=== PATIENT | male | born 1980 | race Two or more races ===

== ENCOUNTER 2022-08-06 12:50 | Emergency (ER) | payer OTHER ==
[~2022-08-06] VITALS: Ht 170.2 cm; Wt 108.9 kg
[2022-08-06] MEDS ORDERED: AMLODIPINE-OLM1 EAC2 (13:01)
== END 2022-08-06 17:08 | disposition home or self-care (01) ==
LOC: ER 12:50
DX: M54.32 Sciatica, left side (principal); I10 Essential (primary) hypertension; M51.37 Other intervertebral disc degeneration, lumbosacral region

== ENCOUNTER → 2022-08-19 | Emergency (ER) | payer OTHER ==
[~2022-08-19] VITALS: Ht 170.2 cm; Wt 110.7 kg
[~2022-08-19] MED LIST: ALDACTONE25 MG PO; AMLODIPINE-OLM1 EAC2; KETO10TA2 PO; NORFLEX100MG PO
== END | disposition home or self-care (01) ==
LOC: ER 13:03
DX: M54.30 Sciatica, unspecified side (principal)